=== PATIENT | female | born 2005 | race Caucasian/White ===

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

== ENCOUNTER 2025-02-11 21:37 | Emergency (ER) | payer MEDICAID ==
[~2025-02-11] VITALS: Ht 152.4 cm; Wt 78.0 kg
[~2025-02-11 21:37] MED LIST: ACET-2708 MT
[2025-02-11 21:46] VITALS: O2SAT 100
[2025-02-11 22:27] VITALS: TEMP 37; O2SAT 100
[2025-02-12 00:25] LABS: BASOPHILS % 0.7 % (0.0-2.0); EOSINOPHILS % 0.7 % (0.0-5.0); HEMATOCRIT. 34.7 % (36.0-48.0); HEMOGLOBIN. 11.2 g/dL (12.0-16.0); LYMPHOCYTES % 17.2 % (20.0-50.0); MEAN PLATELET VOLUME 7.6 fl (7.4-10.4); MONOCYTES % 6.1 % (2.0-8.0); NEUTROPHILS % 75.3 % (40.0-76.0); PLATELET 319 x1000/uL (130-400); RED BLOOD CELL COUNT 4.29 mill/uL (4.2-5.4); RED CELL DISTRIBUTION WIDTH 15.2 % (11.6-14.6)
[2025-02-12 00:37] LABS: HCG SCREEN NEGATIVE
[2025-02-12 00:39] LABS: CREATININE 0.5 mg/dL (0.6-1.0); UREA NITROGEN BLOOD 12 mg/dL (9-23)
[2025-02-12 00:40] LABS: PROTEIN TOTAL 7.9 g/dL (6.0-8.3)
[2025-02-12 00:41] LABS: ASPARTATE AMINOTRANSFERASE 17 IU/L (<34); BILIRUBIN DIRECT < 0.1 mg/dL (<=3.0)
[2025-02-12 00:42] LABS: BILIRUBIN TOTAL 0.2 mg/dL (0.1-1.0)
[2025-02-12] MEDS: FAMOTIDINE 20MG TABLET PO ONE (00:58)
[2025-02-12 00:59] VITALS: BP 116/77; PULSE 85; RESP 18
[2025-02-12] MEDS: MAGNESIUM/ALUMINUM HYDROXIDE/SIMETHICONE 30ML UDC PO ONE (00:59)
[2025-02-12] MEDS: KETOROLAC 15MG/ML VIAL IM ONE (00:59)
[2025-02-12] MEDS ORDERED: FAMO-135 MT (01:09)
== END 2025-02-12 01:30 | disposition home or self-care (01) ==
LOC: ER 21:37
DX: K29.70 Gastritis, unspecified, without bleeding (principal); R10.11 Right upper quadrant pain; Z88.0 Allergy status to penicillin
CPT/HCPCS: 99285; 76705; 80076; 80048; 84703; 83690; 85025; 36415; 96372; J1885